=== PATIENT | female | born 1995 | race Caucasian/White ===

== ENCOUNTER 2017-02-05 16:50 | Outpatient (CLI) | payer OTHER ==
[~2017-02-05] VITALS: Ht 167.6 cm; Wt 69.2 kg
[2017-02-05 17:04] VITALS: Ht 167.6 cm; Wt 69.2 kg
--- NOTE | 2017-02-05 17:38 | RADRPT ---
PROCEDURE: OB ultrasound for biophysical profile CLINICAL INDICATION: Post dates TECHNIQUE: Multiple sonographic images of the pelvis were obtained. Transabdominal views of the g ravid uterus are available for review. The images were reviewed on a PACS workstation. COMPARISON: None FINDINGS: breathing movement = 2/2 tone = 2/2 motion = 2/2 NIKOLAI = 2/2 NIKOLAI = 14.0 cm Single live intrauterine with cardiac activity of 153 bpm. position is cephal ic. The placenta is posterior. IMPRESSION: 1. Single live intrauterine gestation. 2. Biophysical profile = 8/8. 3. NIKOLAI = 14.0 cm. RPTAT: HH .Deepthi Greene MD, MD Date Time Electronically viewed and signed by .Deepthi Greene MD, on 02/05/2017 17:38 .G/
--- NOTE | 2017-02-05 17:45 | RADRPT ---
PROCEDURE: US OB. CLINICAL INDICATION: Post dates TECHNIQUE: Multiple sonographic images of the pelvis were obtained. Transabdominal imaging only w as performed. The images were reviewed on a PACS workstation. COMPARISON: No prior studies are available for comparison. FINDINGS: There is a single live intrauterine gestation. Cardiac activity is present with 153 beats per minut e. position is cephalic. Measurements were made in order to determine age. The results are as follows: BPD = 9.69 cm HC = 34.27 cm AC = 35.33 cm FL = 7.87 cm. Estimated gestational age of approximately 39 weeks 5 days. The estimated date of delivery is 02/07/2017. The EFW = 3817 g, 64.6 %ile. The placenta is posterior. There is no evidence for an abruption or placenta previa. There are no adnexal masses. IMPRESSION: 1. Single live intrauterine gestation of approximately 39 weeks 5 days, by ultrasound criteria. 2. The estimated date of delivery is 02/07/2017. 3. The estimated weight is 3817 g, 64.6 %ile. RPTAT: HH .Deepthi Greene MD, Date Time Electronically viewed and signed by .Deepthi Greene MD, on 02/05/2017 17:45 .G/
[2017-02-05] MEDS ORDERED: PRENAT PO (18:26)
--- NOTE | 2017-02-05 18:46 | TRIAGE ---
OB Triage Datetime Report Generated by CPN: 02/05/2017 18:46 Datetime: 02/05/2017 17:57 Comments: NST DONE. Monitors taken off pt Datetime: 02/05/2017 17:50 Labor Evaluation Frequency: x1 contractions noted during NST Monitor Mode: External Quality: Mild Pattern: Normal: <= 5 Contractions in 10 Minutes Resting Tone [place]: Relaxed Heart Rate FHR Baseline Rate: 155 Monitor Mode: External US FHR Baseline Changes: No Baseline Change Variability: Moderate 6-25 bpm Accelerations: 15X15 Decelerations: None Category: Category I Pain Assessment Pain Presence: None/Denies Datetime: 02/05/2017 17:31 EGA: 39.3 Datetime: 02/05/2017 17:16 Time of Arrival: 02/05/2017 16:43 Arrived By: Ambulatory Arrived From: Office Chief Complaint: Post Dates Movement: Present Contractions: Denies/Absent Rupture of Membranes: Denies Vaginal Discharge: Denies Recent Sexual Intercouse: Denies Abdominal Trauma: Not Applicable Patient Complaints: None Initial Plan: NST, BPP, EFW, VE
--- NOTE | 2017-02-05 19:52 | PN ---
Triage Information Date/Time 02/05/2017 Reason for visit: Weeks of Gestation 39 weeks and 3 days /Para Diabetes: none Hypertention: none Additional information 22-year-old with IUP at 39 weeks and 3 days with care with Dr. Resendez was sent to triage due to concern for possible postdates. Patient denies any uterine contraction, leaking of fluid or vaginal bleeding or decreased movement. Her records reviewed. Her final BO by LMP consistent with 8 weeks ultrasound is February 04. Patient had ultrasound in triage. Estimated weight 3817 BPP: 01/21 Patient denies feeling any cramps or contraction. NST category 1 Objective Heart Rate: 120's Contractions: None Results/Medications Imaging Results PROCEDURE: US OB. CLINICAL INDICATION: Post dates TECHNIQUE: Multiple sonographic images of the pelvis were obtained. Transabdominal imaging only was performed. The images were reviewed on a PACS workstation. COMPARISON: No prior studies are available for comparison. FINDINGS: There is a single live intrauterine gestation. Cardiac activity is present with 153 beats per minute. position is cephalic. Measurements were made in order to determine age. The results are as follows: BPD = 9.69 cm HC = 34.27 cm AC = 35.33 cm FL = 7.87 cm. Estimated gestational age of approximately 39 weeks 5 days. The estimated date of delivery is 02/07/2017. The EFW = 3817 g, 64.6 %ile. The placenta is posterior. There is no evidence for an abruption or placenta previa. There are no adnexal masses. IMPRESSION: 1. Single live intrauterine gestation of approximately 39 weeks 5 days, by ultrasound criteria. 2. The estimated date of delivery is 02/07/2017. 3. The estimated weight is 3817 g, 64.6 %ile. RPTAT: HH Disposition: Discharge Assessment/Plan Follow up with her Primary OB within 24-48 hours Labor precaution and kick count MAGGY JOHNSON MD Feb 05, 2017 19:52
== END 2017-02-05 18:35 | disposition home or self-care (01) ==
LOC: OBT 16:50 → L-D 16:52 → OBT 18:35
PROVIDERS: ATTEND Obstetrics & Gynecology
DX: O48.0 Post-term pregnancy (principal)
CPT/HCPCS: 76815; 76818; Z7500; G0463

== ENCOUNTER 2017-02-09 14:50 | Outpatient (CLI) | payer OTHER ==
[~2017-02-09] VITALS: Ht 160 cm; Wt 69.3 kg
[~2017-02-09 14:50] MED LIST: PRENAT PO
[2017-02-09 15:20] VITALS: Ht 160 cm; Wt 69.3 kg
--- NOTE | 2017-02-09 15:56 | RADRPT ---
PROCEDURE: Obstetrical ultrasound for biophysical profile CLINICAL INDICATION: Biophysical profile. . TECHNIQUE: Obstetrical ultrasound of the uterus for biophysical profile. Transabdominal views are obtained. COMPARISON: 02/05/2017 FINDINGS: Single intrauterine gestation. Presentation: Cephalic. Placenta: Posterior - fundal No evidence of placental abruption. No evidence of placenta previa. breathing movement = 2/2 tone = 2/2 motion = 2/2 NIKOLAI = 2/2 NIKOLAI = 15.8 cm heart rate: 137 beats per minute IMPRESSION: Single intrauterine gestation. Biophysical profile 01/21 RPTAT: AADD .Fredo Quezada MD, MD Date Time Electronically viewed and signed by .Fredo Quezada MD, on 02/09/2017 15:55 .B/
--- NOTE | 2017-02-09 16:34 | QN ---
Documentation Comment iup 40 weeks gq1 po post dates -no complaints vss exan wnl a/p iup 40 weeks post dates dc home MADELYN KEARNS MD Feb 09, 2017 16:34
--- NOTE | 2017-02-09 17:45 | TRIAGE ---
OB Triage Datetime Report Generated by CPN: 02/09/2017 17:44 Datetime: 02/09/2017 15:40 Labor Evaluation Monitor Mode: External Resting Tone [place]: Relaxed Heart Rate FHR Baseline Rate: 130 Monitor Mode: External US FHR Baseline Changes: No Baseline Change Variability: Moderate 6-25 bpm Accelerations: 15X15 Decelerations: None Category: Category I Pain Assessment Pain Presence: None/Denies Datetime: 02/09/2017 15:22 Time of Arrival: 02/09/2017 14:46 EGA: 40.0 Arrived By: Ambulatory Arrived From: Home Chief Complaint: BPP/NIKOLAI Movement: Present Contractions: Denies/Absent Rupture of Membranes: Denies Vaginal Discharge: Denies Recent Sexual Intercouse: Denies Abdominal Trauma: Not Applicable Patient Complaints: None Provider Notified: Lonnie Initial Plan: NST, BPP/NIKOLAI Datetime: 02/09/2017 15:20 Assessment Type: Triage Maternal Assessment Level of Consciousness: Fully Conscious DTR's/Clonus: DTRs 2+; No Clonus Headache: Denies Blurred Vision: No Respiratory Effort: Unlabored; Regular Rhythm; Equal Expansion Breath Sounds, Left: Clear and Equal Breath Sounds, Right: Clear and Equal Nausea/Vomiting: Denies RUQ Epigastric Pain: Denies Lower Extremities Edema: None Degree: None Upper Extremities Edema: None Degree: None Facial Edema: None Fall Risk Assessment History of Falling: (0) No Secondary Diagnosis: (0) No Ambulatory Aid: (0) Bedrest/Nurse Assist IV Therapy: (0) No Gait: (0) Normal/Bedrest/Immobile Mental Status: (0) Oriented to Own Ability Fall Score: 0 Fall Risk Score Definition: No Risk: No action required Datetime: 02/05/2017 17:31 EGA: 39.3 Datetime: 02/05/2017 17:16 Chief Complaint: Post Dates (Pt's reported BO 02/04/17) Time Provider Notified: 02/05/2017 18:08 Provider Notified: Salceda Datetime: 02/05/2017 17:00 Assessment Type: Triage Maternal Assessment Level of Consciousness: Fully Conscious DTR's/Clonus: DTRs 2+; No Clonus Headache: Denies Blurred Vision: No Respiratory Effort: Unlabored; Regular Rhythm; Equal Expansion Breath Sounds, Left: Clear and Equal Breath Sounds, Right: Clear and Equal Nausea/Vomiting: Denies RUQ Epigastric Pain: Denies Lower Extremities Edema: None Degree: None Upper Extremities Edema: None Degree: None Facial Edema: None Fall Risk Assessment History of Falling: (0) No Secondary Diagnosis: (0) No Ambulatory Aid: (0) Bedrest/Nurse Assist IV Therapy: (0) No Gait: (0) Normal/Bedrest/Immobile Mental Status: (0) Oriented to Own Ability Fall Score: 0 Fall Risk Score Definition: No Risk: No action required Datetime: 02/05/2017 16:53 Stage of : OB Triage
== END 2017-02-09 16:35 | disposition home or self-care (01) ==
LOC: OBT 14:50 → L-D 14:50 → OBT 16:35
PROVIDERS: ATTEND Obstetrics & Gynecology
DX: O48.0 Post-term pregnancy (principal); Z3A.40 40 weeks gestation of pregnancy
CPT/HCPCS: 76818; Z7500; G0463

== ENCOUNTER 2017-02-12 10:50 | Inpatient (IN) | payer OTHER ==
[~2017-02-12] VITALS: Ht 167.6 cm; Wt 69.5 kg
[2017-02-12] MEDS: LACTATED RINGER'S 1,000 ML IV SCH ×2 (11:30→19:21)
[2017-02-12 11:59] VITALS: Ht 167.6 cm; Wt 69.5 kg
[2017-02-12 12:00] VITALS: BP 135/82; PULSE 83; RESP 19
[2017-02-12] MEDS ORDERED: BUTORPHANOL 2 MG INJ IV PRN ×2 (12:30→15:30)
--- NOTE | 2017-02-12 12:45 | RADRPT ---
PROCEDURE: OB ultrasound for biophysical profile CLINICAL INDICATION: Post dates TECHNIQUE: Multiple sonographic images of the pelvis were obtained. Transabdominal views of the g ravid uterus are available for review. The images were reviewed on a PACS workstation. COMPARISON: None FINDINGS: breathing movement = 2/2 tone = 2/2 motion = 2/2 NIKOLAI = 2/2 NIKOLAI = 7.5 cm Single live intrauterine with cardiac activity of 124 bpm. position is cephal ic. The placenta is posterior. IMPRESSION: 1. Single live intrauterine gestation. 2. Biophysical profile = 8/8. 3. NIKOLAI = 7.5 cm. RPTAT: HH .Deepthi Greene MD, MD Date Time Electronically viewed and signed by .Deepthi Greene MD, on 02/12/2017 12:45 .G/
--- NOTE | 2017-02-12 13:11 | RADRPT ---
PROCEDURE: US OB. CLINICAL INDICATION: Size and dates TECHNIQUE: Multiple sonographic images of the pelvis were obtained. Transabdominal imaging only w as performed. The images were reviewed on a PACS workstation. COMPARISON: No prior studies are available for comparison. FINDINGS: There is a single live intrauterine gestation. Cardiac activity is present with 128 beats per minut e. position is cephalic. Measurements were made in order to determine age. The results are as follows: BPD = 9.34 cm HC = 33.35 cm AC = 33.31 cm FL = 7.05 cm. Estimated gestational age of approximately 37 weeks 3 days. The estimated date of delivery is 03/02/2017. The EFW = 3129 g, 11.5 %ile. The placenta is posterior. There is no evidence for an abruption or placenta previa. There are no adnexal masses. IMPRESSION: 1. Single live intrauterine gestation of approximately 37 weeks 3 days, by ultrasound criteria. 2. The estimated date of delivery is 03/02/2017. 3. The estimated weight is 3129 g, 11.5 %ile. RPTAT: HH .Deepthi Greene MD, Date Time Electronically viewed and signed by .Deepthi Greene MD, on 02/12/2017 13:10 .G/
[2017-02-12] MEDS ORDERED: LACTATED RINGER'S 1,000 ML IV SCH (15:27)
[2017-02-12] MEDS ORDERED: METHYLERGONOVINE 0.2 MG INJ IM PRN (15:30)
[2017-02-12] MEDS ORDERED: CARBOPROST 250 MCG INJ IM PRN (15:30)
[2017-02-12] MEDS ORDERED: IBUPROFEN 600 MG TAB PO PRN (15:30)
[2017-02-12] MEDS ORDERED: MISOPROSTOL 200 MCG TAB PR PRN (15:30)
[2017-02-12] MEDS ORDERED: LIDOCAINE 1% (MPF) 30 ML INJ INJ PRN (15:30)
[2017-02-12] MEDS ORDERED: OXYTOCIN 30 UNITS/LR 500 ML IV PRN (15:30)
[2017-02-12] MEDS ORDERED: OXYTOCIN 30 UNITS/LR 500 ML IV SCH ×3 (15:30)
[2017-02-12 16:03] LABS: BASOPHILS % 0.4 % (0.0-2.0); EOSINOPHILS # 0.1 10^3/ul (0.0-0.5); EOSINOPHILS % 0.8 % (0.0-7.0); HEMATOCRIT 33.5 % (37.0-47.0); HEMOGLOBIN 11.3 g/dl (12.0-16.0); LYMPHOCYTES # 1.7 10^3/ul (0.8-2.9); MEAN CORPUSCULAR HEMOGLOBIN 26.8 pg (29.0-33.0); MEAN CORPUSCULAR HGB CONC 33.7 g/dl (32.0-37.0); MEAN CORPUSCULAR VOLUME 79.4 fl (72.0-104.0); MONOCYTE # 0.7 10^3/ul (0.3-0.9); MONOCYTES % 7.6 % (0.0-13.0); NEUTROPHILS % 72.8 % (30.0-74.0); PLATELET COUNT 226 10^3/UL (140-415); RED BLOOD COUNT 4.22 10^6/ul (4.20-5.40); RED CELL DISTRIBUTION WIDTH 13.4 % (11.5-14.5); WHITE BLOOD COUNT 9.3 10^3/ul (4.8-10.8)
[2017-02-12 16:06] LABS: INR 0.86; PROTIME 11.7 Sec (12.2-14.2); PT RATIO 0.9
--- NOTE | 2017-02-12 19:43 | HP ---
Date/Time of Note Date/Time of Note DATE: 02/12/17 TIME: 19:37 OB - History Hx of Present Free Text/Dictation 02/12/2017 Chief Complaint: post date, was sent from Dr. de jesus office for labor induction. Estimated Due Date: Feb 09, 2017 : 2 Para: 0 Spontaneous : 1 Therapeutic : 0 Care: Good Care Medical Complications: None Other Concerns: Post date Favourable cervix Borderline EFW post date, was sent from Dr. de jesus office for labor induction. Patient desired and requested her care being transferred to ER panel attending. Past Family/Social History * Past Medical, Family and Obstetric Histories reviewed from chart History of left nephrectomy about 17 years ago, unclear etiology. Blood Type: O+ Rubella: immune RPR/VDRL: Negative GBS Status: Negative HBsAG: Negative OB Admission Exam Vital Signs Vital Signs Vital Signs Date Time Temp Pulse Resp B/P Pulse Ox O2 Delivery O2 Flow Rate FiO2 02/12/17 12:00 98.2 83 19 135/82 99 Room Air Physical Exam HEENT: WNL Lungs: Clear Abdomen: WNL Extremities: Normal Reflexes: Normal Cervical Dilatation: 2cm Effacement: 75% Station: -2 Membranes: Intact Heart Rate: 130's Accelerations: Accelerations Present Varibility: Moderate Contractions on Admission: < 5 Minutes Apart Intensity: Mild Last 72 hours Lab Results CBC & BMP 02/12/17 11:10 OB Assessment/Plan Other Assessment: IUP at GBS negative Post date, 40 week and 3 days Favourable cervix Desires induction Risks and benefits of induction including risk for section discussed with the patient. Patient verbalized understanding and desires to proceed. Start pitocin. Anticipate Epidural when requests. MAGGY JOHNSON MD Feb 12, 2017 19:43
[2017-02-12 21:22] LABS: BASOPHILS % 0.3 % (0.0-2.0); EOSINOPHILS # 0.1 10^3/ul (0.0-0.5); EOSINOPHILS % 0.5 % (0.0-7.0); HEMATOCRIT 34.8 % (37.0-47.0); HEMOGLOBIN 11.6 g/dl (12.0-16.0); LYMPHOCYTES # 1.8 10^3/ul (0.8-2.9); LYMPHOCYTES % 19.6 % (18.0-55.0); MEAN CORPUSCULAR HEMOGLOBIN 26.4 pg (29.0-33.0); MEAN CORPUSCULAR HGB CONC 33.3 g/dl (32.0-37.0); MEAN CORPUSCULAR VOLUME 79.3 fl (72.0-104.0); MEAN PLATELET VOLUME 11.8 fl (7.4-10.4); MONOCYTE # 0.7 10^3/ul (0.3-0.9); MONOCYTES % 7.6 % (0.0-13.0); NEUTROPHILS % 71.7 % (30.0-74.0); PLATELET COUNT 217 10^3/UL (140-415); RED BLOOD COUNT 4.39 10^6/ul (4.20-5.40); RED CELL DISTRIBUTION WIDTH 13.5 % (11.5-14.5); WHITE BLOOD COUNT 9.3 10^3/ul (4.8-10.8)
[2017-02-12] MEDS ORDERED: LACTATED RINGER'S 1,000 ML IV ONE (21:26)
[2017-02-12] MEDS ORDERED: FENTAnyl 2MCG/ML-ROPIV 0.2% 0 ML ONE (21:29)
[2017-02-12] MEDS ORDERED: NALOXONE (0.4 MG/ML) INJ IV PRN (21:30)
[2017-02-12] MEDS ORDERED: morphine 2 MG INJ IV PRN (21:30)
[2017-02-12] MEDS ORDERED: TRIMETHOBENZAMIDE 100 MG/ML VIAL IM PRN (21:30)
[2017-02-12] MEDS ORDERED: KETOROLAC 30 MG INJ IV PRN (21:30)
[2017-02-12] MEDS ORDERED: NALBUPHINE HCL (10 MG/1 ML) INJ IV PRN (21:30)
[2017-02-12] MEDS ORDERED: morphine 4 MG/ML VIAL IV PRN (21:30)
[2017-02-12] MEDS ORDERED: ONDANSETRON 4 MG INJ IV ONE (21:30)
[2017-02-12] MEDS ORDERED: ONDANSETRON 4 MG INJ IV PRN (21:30)
[2017-02-12] MEDS ORDERED: FENTAnyl 2MCG/ML-ROPIV 0.2% 100 ML BAG EPI SCH (21:30)
[2017-02-12] MEDS ORDERED: CITRIC ACID/NA CITRATE 30 ML CUP PO ONE (21:30)
[2017-02-12] MEDS ORDERED: DIPHENHYDRAMINE 50 MG INJ IV PRN (21:30)
[2017-02-12 21:37] LABS: INR 0.87; PROTIME 11.8 Sec (12.2-14.2); PT RATIO 0.9
[2017-02-12 21:38] LABS: PARTIAL THROMBOPLASTIN TIME 24.1 Sec (25.0-35.0)
[2017-02-12 21:41] LABS: ALBUMIN 3.2 g/dl (3.3-4.9); ALBUMIN/GLOBULIN RATIO 0.82; BILIRUBIN,INDIRECT 0.1 mg/dl (0-1.1); BILIRUBIN,TOTAL 0.1 mg/dl (0.2-1.3); CREATININE 0.71 mg/dl (0.44-1.00); POTASSIUM 4.1 mmol/L (3.5-5.1); TOTAL PROTEIN 7.1 g/dl (6.1-8.1)
[2017-02-12 21:45] LABS: ADD UMIC YES; UR ASCORBIC ACID NEGATIVE (NEGATIVE); UR BILIRUBIN (Dip) NEGATIVE (NEGATIVE); UR BLOOD (Dip) 3+ mg/dL (NEGATIVE); UR CLARITY CLEAR (CLEAR); UR COLOR STRAW (YELLOW); UR GLUCOSE (Dip) NEGATIVE (NEGATIVE); UR KETONES (Dip) NEGATIVE (NEGATIVE); UR LEUKOCYTE ESTERASE (Dip) NEGATIVE Leu/ul (NEGATIVE); UR NITRITE (Dip) NEGATIVE (NEGATIVE); UR RBC 1 /HPF (0-5); UR SPECIFIC GRAVITY (Dip) 1.005 (1.003-1.030); UR TOTAL PROTEIN (Dip) NEGATIVE (NEGATIVE); UR UROBILINOGEN (Dip) NEGATIVE (NEGATIVE)
[2017-02-12] MEDS ORDERED: LACTATED RINGER'S 1,000 ML IV PRN (22:00)
[2017-02-13] MEDS: LACTATED RINGER'S 1,000 ML IV SCH ×2 (03:22→08:34)
[2017-02-13] MEDS ORDERED: FENTAnyl 2MCG/ML-ROPIV 0.2% 100 ML ONE (08:08)
[2017-02-13] MEDS ORDERED: NALBUPHINE HCL (10 MG/1 ML) INJ IV PRN (09:30)
[2017-02-13] MEDS ORDERED: NALOXONE (0.4 MG/ML) INJ IV PRN (09:30)
[2017-02-13] MEDS ORDERED: ONDANSETRON 4 MG INJ IV PRN (09:30)
[2017-02-13] MEDS ORDERED: DIPHENHYDRAMINE 50 MG INJ IV PRN (09:30)
[2017-02-13] MEDS ORDERED: FENTAnyl 2MCG/ML-ROPIV 0.2% 100 ML BAG EPI SCH (09:30)
[2017-02-13] MEDS ORDERED: TRIMETHOBENZAMIDE 100 MG/ML VIAL IM PRN (09:30)
--- NOTE | 2017-02-13 12:37 | LDN ---
Date/Time of Note Date/Time of Note DATE: 02/13/17 TIME: 12:29 Delivery Summary February 13, 2017 This patient is a 22 years old 2 para 0 1 with estimated date of confinement of February 10, 2017 who was admitted yesterday January. She was induced due to post term she made a progress to complete dilatation today under epidural anesthesia. She had an spontaneous vaginal delivery. Small sulcus tear was repaired with 3-0 chromic catgut the. Beatty was female with score of 9 and 1 minute 9 at 5 minutes The weight of the baby was 7 pounds and 6 ounces . Estimated blood loss was about 200 cc Placenta Delivered: Spontaneously Meconium: none Episiotomy: No Anesthesia type: Epidural Sponge & Needle done & correct: Yes All needle counts correct: Yes Any foreign bodies felt in the: No Problems: Delivery Information Sex Sex: female Apgars 1 Minute: 9 5 Minute: 9 Suctioning Nose & mouth suctioned at markos: Yes Delee suction performed: No Umbilical Cord Umbilical cord with: 3 Vessels Cord presentations: no nuchal cord Cord Blood was obtained: Yes Mother & Baby Disposition Disposition Laboratory Tests Test 02/12/17 16:00 02/12/17 21:04 Hepatitis B Surface Antigen NEGATIVE White Blood Count 9.310^3/ul Red Blood Count 4.3910^6/ul Hemoglobin 11.6g/dl Hematocrit 34.8% Mean Corpuscular Volume 79.3fl Mean Corpuscular Hemoglobin 26.4pg Mean Corpuscular Hemoglobin Concent 33.3g/dl Red Cell Distribution Width 13.5% Platelet Count 33003^3/UL Mean Platelet Volume 11.8fl Neutrophils % 71.7% Lymphocytes % 19.6% Monocytes % 7.6% Eosinophils % 0.5% Basophils % 0.3% Nucleated Red Blood Cells % 0.0/100WBC Neutrophils # (Manual) 6.710^3/ul Lymphocytes # 1.810^3/ul Monocytes # 0.710^3/ul Eosinophils # 0.110^3/ul Basophils # 0.010^3/ul Nucleated Red Blood Cells # 0.010^3/ul Prothrombin Time 11.8Sec Prothrombin Time Ratio 0.9 INR International Normalized Ratio 0.87 Activated Partial Thromboplast Time 24.1Sec Urine Color STRAW Urine Clarity CLEAR Urine pH 7.0 Urine Specific [place] 1.005 Urine Ketones NEGATIVEmg/dL Urine Nitrite NEGATIVEmg/dL Urine Bilirubin NEGATIVEmg/dL Urine Urobilinogen NEGATIVEmg/dL Urine Leukocyte Esterase NEGATIVELeu/ul Urine Microscopic RBC 1/HPF Urine Microscopic WBC 1/HPF Urine Hemoglobin 3+mg/dL Urine Glucose NEGATIVEmg/dL Urine Total Protein NEGATIVEmg/dl Sodium Level 138mmol/L Potassium Level 4.1mmol/L Chloride Level 104mmol/L Carbon Dioxide Level 23mmol/L Anion Gap 15 Blood Urea Nitrogen 11mg/dl Creatinine 0.71mg/dl Glucose Level 82mg/dl Uric Acid 5.5mg/dl Calcium Level 9.0mg/dl Total Bilirubin 0.1mg/dl Direct Bilirubin 0.00mg/dl Indirect Bilirubin 0.1mg/dl Aspartate Amino Transf (AST/SGOT) 23IU/L Alanine Aminotransferase (ALT/SGPT) 19IU/L Alkaline Phosphatase 284IU/L Total Protein 7.1g/dl Albumin 3.2g/dl Globulin 3.90g/dl Albumin/Globulin Ratio 0.82 Current Medications Medications (Trade) Dose Ordered Sig/Michelle Route PRN Reason Start Time Stop Time Status Last Admin Dose Admin Lactated Ringer's (Lr) 1,000 ml @ 125 mls/hr Q8H IV 02/12/17 12:30 02/13/17 08:34 Butorphanol Tartrate 2 mg 2 mg Q2H PRN IV PAIN 02/12/17 12:30 Lactated Ringer's 1,000 ml @ 125 mls/hr Q8H IV 02/12/17 15:27 02/12/17 15:33 DC Oxytocin/Lactated Ringer's 500 ml @ 0 mls/hr TITRATE IV 02/12/17 15:30 02/12/17 16:00 Butorphanol Tartrate (Stadol) 2 mg Q2H PRN IV PAIN 02/12/17 15:30 02/12/17 15:33 DC Lidocaine 30 ml 30 ml ONCE PRN INJ EPISIOTOMY/TEARING 02/12/17 15:30 Oxytocin/Lactated Ringer's 500 ml @ 125 mls/hr ONCE -MAY REPEAT X1 IV 02/12/17 15:30 Oxytocin/Lactated Ringer's 500 ml @ 125 mls/hr ONCE IV 02/12/17 15:30 Ibuprofen 600 mg 600 mg ONCE PRN PO Mild Pain (Pain Score 1-3) 02/12/17 15:30 Lactated Ringer's 1,000 ml @ 2,000 mls/hr Q30M PRN IV PRE-EPIDURAL BOLUS 02/12/17 22:00 Oxytocin/Lactated Ringer's 500 ml @ 0 mls/hr ONCE PRN IV For Hemorrhage Management 02/12/17 15:30 Methylergonovine Maleate (Methergine) 0.2 mg ONCE PRN IM VAGINAL BLEEDING 02/12/17 15:30 Carboprost Tromethamine (Hemabate) 250 mcg ONCE PRN IM VAGINAL BLEEDING 02/12/17 15:30 Misoprostol 1000 mcg 1,000 mcg ONCE PRN ID VAGINAL BLEEDING 02/12/17 15:30 Lactated Ringer's (Lr) 1,000 ml @ 1,000 mls/hr Q1H ONCE IV 02/12/17 21:26 02/12/17 21:53 DC Ondansetron HCl (Zofran Inj) 4 mg pre-procedure ONCE IV 02/12/17 21:30 02/12/17 21:53 DC Citric Acid/ Sodium Citrate (Bicitra) 30 ml PRE-OP ONCE PO 02/12/17 21:30 02/12/17 21:53 DC Naloxone HCl (Narcan) 0.1 mg Q2M PRN IV FOR RESP RATE 8 OR LESS 02/12/17 21:30 02/12/17 21:53 DC Ketorolac Tromethamine (Toradol) 30 mg Q6H PRN IV PAIN 02/12/17 21:30 02/12/17 21:53 DC Morphine Sulfate (morphine) 2 mg Q3H PRN IV PAIN LEVEL 1-5 02/12/17 21:30 02/12/17 21:53 DC Morphine Sulfate (morphine) 4 mg Q3H PRN IV PAIN LEVEL 6-10 02/12/17 21:30 02/12/17 21:53 DC Diphenhydramine HCl (Benadryl) 25 mg Q6H PRN IV ITCHING 02/12/17 21:30 02/12/17 21:53 DC Nalbuphine HCl (Nubain) 5 mg ONCE PRN IV ITCHING 02/12/17 21:30 02/12/17 21:53 DC Ondansetron HCl (Zofran Inj) 4 mg Q6H PRN IV NAUSEA AND/OR VOMITING 02/12/17 21:30 02/12/17 21:53 DC Trimethobenzamide HCl (Tigan) 200 mg Q6H PRN IM NAUSEA AND/OR VOMITING 02/12/17 21:30 02/12/17 21:53 DC Fentanyl/ Ropivacaine 100 ml 100 ml EPIDURAL INFUSION EPI 02/12/17 21:30 02/12/17 21:53 DC Fentanyl/ Ropivacaine 0 ml @ ud STK-MED ONCE .ROUTE 02/12/17 21:29 02/12/17 21:30 DC Fentanyl/ Ropivacaine 100 ml @ STK-MED ONCE .ROUTE 02/13/17 08:08 02/13/17 08:09 DC Naloxone HCl (Narcan) 0.1 mg Q2M PRN IV FOR RESP RATE 8 OR LESS 02/13/17 09:30 02/14/17 09:29 Diphenhydramine HCl (Benadryl) 25 mg Q6H PRN IV ITCHING 02/13/17 09:30 02/14/17 09:29 Nalbuphine HCl (Nubain) 5 mg ONCE PRN IV ITCHING 02/13/17 09:30 02/14/17 09:29 Ondansetron HCl (Zofran Inj) 4 mg Q6H PRN IV NAUSEA AND/OR VOMITING 02/13/17 09:30 02/14/17 09:29 Trimethobenzamide HCl (Tigan) 200 mg Q6H PRN IM NAUSEA AND/OR VOMITING 02/13/17 09:30 02/14/17 09:29 Fentanyl/ Ropivacaine 100 ml EPIDURAL INFUSION EPI 02/13/17 09:30 Mom & Baby to Maternity; Good: Yes Mom transferred to: Med/Surg Baby to NICU: No KAREL AMARO MD Feb 13, 2017 12:37
[2017-02-13] MEDS ORDERED: OXYTOCIN 30 UNITS/LR 500 ML IV SCH (13:58)
[2017-02-13] MEDS ORDERED: LANOLIN 7 GM TUBE TOP PRN (14:00)
[2017-02-13] MEDS ORDERED: SENNA/DOCUSATE NA (8.6MG/50MG) TAB PO PRN (14:00)
[2017-02-13] MEDS ORDERED: CARBOPROST 250 MCG INJ IM PRN (14:00)
[2017-02-13] MEDS ORDERED: MISOPROSTOL 200 MCG TAB PR PRN (14:00)
[2017-02-13] MEDS ORDERED: ACETAMINOPHEN 500 MG TAB PO PRN (14:00)
[2017-02-13] MEDS ORDERED: DIBUCAINE 1% 30 GM OINT PR PRN (14:00)
[2017-02-13] MEDS ORDERED: OXYTOCIN 30 UNITS/LR 500 ML IV PRN (14:00)
[2017-02-13] MEDS ORDERED: WITCH HAZEL/GLYCERIN PAD PR PRN (14:00)
[2017-02-13] MEDS ORDERED: BENZOCAINE 20% 56 ML SPRAY TOP PRN (14:00)
[2017-02-13] MEDS ORDERED: METHYLERGONOVINE 0.2 MG INJ IM PRN (14:00)
[2017-02-13] MEDS ORDERED: OXYCODONE/ASPIRIN (4.88/325) TAB PO PRN ×2 (14:00)
[2017-02-13 14:15] VITALS: BP 120/66; PULSE 56; RESP 18
[2017-02-13 16:10] VITALS: BP 116/58; PULSE 60; RESP 18
[2017-02-13] MEDS: IBUPROFEN 600 MG TAB PO PRN (18:04)
[2017-02-13 20:00] VITALS: BP 125/70; PULSE 112; RESP 20
[2017-02-14 03:55] VITALS: BP 105/47; PULSE 58; RESP 19
[2017-02-14] MEDS: IBUPROFEN 600 MG TAB PO PRN (08:42)
[2017-02-14 09:11] LABS: BASOPHILS % 0.4 % (0.0-2.0); EOSINOPHILS # 0.1 10^3/ul (0.0-0.5); EOSINOPHILS % 1.1 % (0.0-7.0); HEMATOCRIT 30.3 % (37.0-47.0); LYMPHOCYTES # 2.1 10^3/ul (0.8-2.9); LYMPHOCYTES % 21.3 % (18.0-55.0); MEAN CORPUSCULAR HEMOGLOBIN 26.5 pg (29.0-33.0); MEAN CORPUSCULAR VOLUME 80.2 fl (72.0-104.0); MONOCYTE # 0.7 10^3/ul (0.3-0.9); MONOCYTES % 6.7 % (0.0-13.0); NEUTROPHILS % 70.3 % (30.0-74.0); PLATELET COUNT 169 10^3/UL (140-415); RED BLOOD COUNT 3.78 10^6/ul (4.20-5.40); RED CELL DISTRIBUTION WIDTH 13.4 % (11.5-14.5); WHITE BLOOD COUNT 9.8 10^3/ul (4.8-10.8)
--- NOTE | 2017-02-14 10:53 | PN ---
Date/Time of Note Date/Time of Note DATE: 02/14/17 TIME: 10:49 OB Subjective Subjective Subjective February 14, 2017 Post day 1 Doing Well Afebrile Ambulatory Chest Clear Breasts are soft , Nipples are intact Abdomen is soft Fundus is firm Moderate amount of lochi Laboratory Tests Test 02/14/17 07:54 White Blood Count 9.810^3/ul Red Blood Count 3.7810^6/ul Hemoglobin 10.0g/dl Hematocrit 30.3% Mean Corpuscular Volume 80.2fl Mean Corpuscular Hemoglobin 26.5pg Mean Corpuscular Hemoglobin Concent 33.0g/dl Red Cell Distribution Width 13.4% Platelet Count 55671^3/UL Mean Platelet Volume 12.0fl Neutrophils % 70.3% Lymphocytes % 21.3% Monocytes % 6.7% Eosinophils % 1.1% Basophils % 0.4% Nucleated Red Blood Cells % 0.0/100WBC Neutrophils # (Manual) 6.910^3/ul Lymphocytes # 2.110^3/ul Monocytes # 0.710^3/ul Eosinophils # 0.110^3/ul Basophils # 0.010^3/ul Nucleated Red Blood Cells # 0.010^3/ul Current Medications Medications (Trade) Dose Ordered Sig/Michelle Route PRN Reason Start Time Stop Time Status Last Admin Dose Admin Lactated Ringer's (Lr) 1,000 ml @ 125 mls/hr Q8H IV 02/12/17 12:30 02/13/17 14:01 DC 02/13/17 08:34 Butorphanol Tartrate 2 mg 2 mg Q2H PRN IV PAIN 02/12/17 12:30 02/13/17 14:01 DC Lactated Ringer's 1,000 ml @ 125 mls/hr Q8H IV 02/12/17 15:27 02/12/17 15:33 DC Oxytocin/Lactated Ringer's 500 ml @ 0 mls/hr TITRATE IV 02/12/17 15:30 02/13/17 14:01 DC 02/12/17 16:00 Butorphanol Tartrate (Stadol) 2 mg Q2H PRN IV PAIN 02/12/17 15:30 02/12/17 15:33 DC Lidocaine 30 ml 30 ml ONCE PRN INJ EPISIOTOMY/TEARING 02/12/17 15:30 02/13/17 14:01 DC Oxytocin/Lactated Ringer's 500 ml @ 125 mls/hr ONCE -MAY REPEAT X1 IV 02/12/17 15:30 02/13/17 14:01 DC 02/13/17 12:44 Oxytocin/Lactated Ringer's 500 ml @ 125 mls/hr ONCE IV 02/12/17 15:30 02/13/17 14:01 DC 02/13/17 12:47 Ibuprofen 600 mg 600 mg ONCE PRN PO Mild Pain (Pain Score 1-3) 02/12/17 15:30 02/13/17 14:01 DC Lactated Ringer's 1,000 ml @ 2,000 mls/hr Q30M PRN IV PRE-EPIDURAL BOLUS 02/12/17 22:00 02/13/17 14:01 DC Oxytocin/Lactated Ringer's 500 ml @ 0 mls/hr ONCE PRN IV For Hemorrhage Management 02/12/17 15:30 02/13/17 14:01 DC Methylergonovine Maleate (Methergine) 0.2 mg ONCE PRN IM VAGINAL BLEEDING 02/12/17 15:30 02/13/17 14:01 DC Carboprost Tromethamine (Hemabate) 250 mcg ONCE PRN IM VAGINAL BLEEDING 02/12/17 15:30 02/13/17 14:01 DC Misoprostol 1000 mcg 1,000 mcg ONCE PRN CO VAGINAL BLEEDING 02/12/17 15:30 02/13/17 14:01 DC Lactated Ringer's (Lr) 1,000 ml @ 1,000 mls/hr Q1H ONCE IV 02/12/17 21:26 02/12/17 21:53 DC Ondansetron HCl (Zofran Inj) 4 mg pre-procedure ONCE IV 02/12/17 21:30 02/12/17 21:53 DC Citric Acid/ Sodium Citrate (Bicitra) 30 ml PRE-OP ONCE PO 02/12/17 21:30 02/12/17 21:53 DC Naloxone HCl (Narcan) 0.1 mg Q2M PRN IV FOR RESP RATE 8 OR LESS 02/12/17 21:30 02/12/17 21:53 DC Ketorolac Tromethamine (Toradol) 30 mg Q6H PRN IV PAIN 02/12/17 21:30 02/12/17 21:53 DC Morphine Sulfate (morphine) 2 mg Q3H PRN IV PAIN LEVEL 1-5 02/12/17 21:30 02/12/17 21:53 DC Morphine Sulfate (morphine) 4 mg Q3H PRN IV PAIN LEVEL 6-10 02/12/17 21:30 02/12/17 21:53 DC Diphenhydramine HCl (Benadryl) 25 mg Q6H PRN IV ITCHING 02/12/17 21:30 02/12/17 21:53 DC Nalbuphine HCl (Nubain) 5 mg ONCE PRN IV ITCHING 02/12/17 21:30 02/12/17 21:53 DC Ondansetron HCl (Zofran Inj) 4 mg Q6H PRN IV NAUSEA AND/OR VOMITING 02/12/17 21:30 02/12/17 21:53 DC Trimethobenzamide HCl (Tigan) 200 mg Q6H PRN IM NAUSEA AND/OR VOMITING 02/12/17 21:30 02/12/17 21:53 DC Fentanyl/ Ropivacaine 100 ml 100 ml EPIDURAL INFUSION EPI 02/12/17 21:30 02/12/17 21:53 DC Fentanyl/ Ropivacaine 0 ml @ ud STK-MED ONCE .ROUTE 02/12/17 21:29 02/12/17 21:30 DC Fentanyl/ Ropivacaine 100 ml @ STK-MED ONCE .ROUTE 02/13/17 08:08 02/13/17 08:09 DC Naloxone HCl (Narcan) 0.1 mg Q2M PRN IV FOR RESP RATE 8 OR LESS 02/13/17 09:30 02/13/17 14:01 DC Diphenhydramine HCl (Benadryl) 25 mg Q6H PRN IV ITCHING 02/13/17 09:30 02/13/17 14:01 DC Nalbuphine HCl (Nubain) 5 mg ONCE PRN IV ITCHING 02/13/17 09:30 02/13/17 14:01 DC Ondansetron HCl (Zofran Inj) 4 mg Q6H PRN IV NAUSEA AND/OR VOMITING 02/13/17 09:30 02/13/17 14:01 DC Trimethobenzamide HCl (Tigan) 200 mg Q6H PRN IM NAUSEA AND/OR VOMITING 02/13/17 09:30 02/13/17 14:01 DC Fentanyl/ Ropivacaine 100 ml EPIDURAL INFUSION EPI 02/13/17 09:30 02/13/17 14:01 DC Oxycodone/Aspirin (Percodan) 1 tab Q3H PRN PO PAIN LEVEL 1-5 02/13/17 14:00 Oxycodone/Aspirin (Percodan) 2 tab Q3H PRN PO PAIN LEVEL 6-10 02/13/17 14:00 Senna/Docusate Sodium (Senokot-S) 1 tab BID PRN PO CONSTIPATION 02/13/17 14:00 02/14/17 08:41 Witch Franca/ Glycerin (Tucks Pads) 1 pad BEDSIDE MEDICATION PRN CO HEMORRHOID/EPISIOTMY PAIN 02/13/17 14:00 02/13/17 15:39 Benzocaine (Dermoplast [place]) 1 spray BEDSIDE MEDICATION PRN TOP HEMORRHOID/EPISIOTMY PAIN 02/13/17 14:00 02/13/17 15:39 Dibucaine (Nupercainal) 1 applic BEDSIDE MEDICATION PRN CO HEMORRHOID/EPISIOTMY PAIN 02/13/17 14:00 Lanolin (Lht-M-Ryplzy) 1 applic BEDSIDE MEDICATION PRN TOP BEDSIDE FOR AGUILAR TO NIPPLES 02/13/17 14:00 Diphtheria/ Tetanus/Acell Pertussis 0.5 ml 0.5 ml ONCE ONCE IM* 02/15/17 09:00 02/15/17 09:01 Oxytocin/Lactated Ringer's 500 ml @ 0 mls/hr ONCE PRN IV For Hemorrhage Management 02/13/17 14:00 Methylergonovine Maleate (Methergine) 0.2 mg ONCE PRN IM VAGINAL BLEEDING 02/13/17 14:00 Carboprost Tromethamine (Hemabate) 250 mcg ONCE PRN IM VAGINAL BLEEDING 02/13/17 14:00 Misoprostol 1000 mcg 1,000 mcg ONCE PRN CO VAGINAL BLEEDING 02/13/17 14:00 Oxytocin/Lactated Ringer's 500 ml @ 125 mls/hr Q4H IV 02/13/17 13:58 02/14/17 05:18 DC 02/13/17 15:12 Ibuprofen (Motrin) 600 mg Q6H PRN PO PAIN 02/13/17 14:00 02/14/17 08:42 Acetaminophen (Tylenol Tab) 500 mg Q6H PRN PO PAIN AND OR ELEVATED TEMP 02/13/17 14:00 No calf tenderness No ankle edema New born is doing well, Breast feeding KAREL AMARO MD Feb 14, 2017 10:53
[2017-02-14 11:59] VITALS: BP 140/72; PULSE 80; RESP 20
[2017-02-14 16:00] VITALS: BP 122/60; PULSE 59; RESP 18
[2017-02-14 19:50] VITALS: BP 130/76; PULSE 67; RESP 18
[2017-02-15 03:40] VITALS: BP 105/61; PULSE 72; RESP 18
[2017-02-15 07:30] VITALS: BP 105/57; PULSE 69; RESP 18
[2017-02-15] MEDS ORDERED: DIPHTH/TET/ACEL PERTUSS (ADULT) 0.5 ML VIAL IM* ONE (09:00)
--- NOTE | 2017-02-15 13:09 | DS ---
Date/Time of Note Date/Time of Note DATE: 02/15/17 TIME: 13:07 Obstetrical Discharge Record Final Diagnosis Final Diagnosis: Term delivered Vaginal Delivery Obstetrical Delivery: Spontaneous Complications Augmentation: Yes Condition on Discharge Physical Assessment Voiding: Yes Bowel Movement: Yes Breast: Soft, non-tender Fundus: Firm Abdomen and Incision: Current Medications Medications (Trade) Dose Ordered Sig/Michelle Route PRN Reason Start Time Stop Time Status Last Admin Dose Admin Lactated Ringer's (Lr) 1,000 ml @ 125 mls/hr Q8H IV 02/12/17 12:30 02/13/17 14:01 DC 02/13/17 08:34 Butorphanol Tartrate 2 mg 2 mg Q2H PRN IV PAIN 02/12/17 12:30 02/13/17 14:01 DC Lactated Ringer's 1,000 ml @ 125 mls/hr Q8H IV 02/12/17 15:27 02/12/17 15:33 DC Oxytocin/Lactated Ringer's 500 ml @ 0 mls/hr TITRATE IV 02/12/17 15:30 02/13/17 14:01 DC 02/12/17 16:00 Butorphanol Tartrate (Stadol) 2 mg Q2H PRN IV PAIN 02/12/17 15:30 02/12/17 15:33 DC Lidocaine 30 ml 30 ml ONCE PRN INJ EPISIOTOMY/TEARING 02/12/17 15:30 02/13/17 14:01 DC Oxytocin/Lactated Ringer's 500 ml @ 125 mls/hr ONCE -MAY REPEAT X1 IV 02/12/17 15:30 02/13/17 14:01 DC 02/13/17 12:44 Oxytocin/Lactated Ringer's 500 ml @ 125 mls/hr ONCE IV 02/12/17 15:30 02/13/17 14:01 DC 02/13/17 12:47 Ibuprofen 600 mg 600 mg ONCE PRN PO Mild Pain (Pain Score 1-3) 02/12/17 15:30 02/13/17 14:01 DC Lactated Ringer's 1,000 ml @ 2,000 mls/hr Q30M PRN IV PRE-EPIDURAL BOLUS 02/12/17 22:00 02/13/17 14:01 DC Oxytocin/Lactated Ringer's 500 ml @ 0 mls/hr ONCE PRN IV For Hemorrhage Management 02/12/17 15:30 02/13/17 14:01 DC Methylergonovine Maleate (Methergine) 0.2 mg ONCE PRN IM VAGINAL BLEEDING 02/12/17 15:30 02/13/17 14:01 DC Carboprost Tromethamine (Hemabate) 250 mcg ONCE PRN IM VAGINAL BLEEDING 02/12/17 15:30 02/13/17 14:01 DC Misoprostol 1000 mcg 1,000 mcg ONCE PRN WI VAGINAL BLEEDING 02/12/17 15:30 02/13/17 14:01 DC Lactated Ringer's (Lr) 1,000 ml @ 1,000 mls/hr Q1H ONCE IV 02/12/17 21:26 02/12/17 21:53 DC Ondansetron HCl (Zofran Inj) 4 mg pre-procedure ONCE IV 02/12/17 21:30 02/12/17 21:53 DC Citric Acid/ Sodium Citrate (Bicitra) 30 ml PRE-OP ONCE PO 02/12/17 21:30 02/12/17 21:53 DC Naloxone HCl (Narcan) 0.1 mg Q2M PRN IV FOR RESP RATE 8 OR LESS 02/12/17 21:30 02/12/17 21:53 DC Ketorolac Tromethamine (Toradol) 30 mg Q6H PRN IV PAIN 02/12/17 21:30 02/12/17 21:53 DC Morphine Sulfate (morphine) 2 mg Q3H PRN IV PAIN LEVEL 1-5 02/12/17 21:30 02/12/17 21:53 DC Morphine Sulfate (morphine) 4 mg Q3H PRN IV PAIN LEVEL 6-10 02/12/17 21:30 02/12/17 21:53 DC Diphenhydramine HCl (Benadryl) 25 mg Q6H PRN IV ITCHING 02/12/17 21:30 02/12/17 21:53 DC Nalbuphine HCl (Nubain) 5 mg ONCE PRN IV ITCHING 02/12/17 21:30 02/12/17 21:53 DC Ondansetron HCl (Zofran Inj) 4 mg Q6H PRN IV NAUSEA AND/OR VOMITING 02/12/17 21:30 02/12/17 21:53 DC Trimethobenzamide HCl (Tigan) 200 mg Q6H PRN IM NAUSEA AND/OR VOMITING 02/12/17 21:30 02/12/17 21:53 DC Fentanyl/ Ropivacaine 100 ml 100 ml EPIDURAL INFUSION EPI 02/12/17 21:30 02/12/17 21:53 DC Fentanyl/ Ropivacaine 0 ml @ ud STK-MED ONCE .ROUTE 02/12/17 21:29 02/12/17 21:30 DC Fentanyl/ Ropivacaine 100 ml @ ud STK-MED ONCE .ROUTE 02/13/17 08:08 02/13/17 08:09 DC Naloxone HCl (Narcan) 0.1 mg Q2M PRN IV FOR RESP RATE 8 OR LESS 02/13/17 09:30 02/13/17 14:01 DC Diphenhydramine HCl (Benadryl) 25 mg Q6H PRN IV ITCHING 02/13/17 09:30 02/13/17 14:01 DC Nalbuphine HCl (Nubain) 5 mg ONCE PRN IV ITCHING 02/13/17 09:30 02/13/17 14:01 DC Ondansetron HCl (Zofran Inj) 4 mg Q6H PRN IV NAUSEA AND/OR VOMITING 02/13/17 09:30 02/13/17 14:01 DC Trimethobenzamide HCl (Tigan) 200 mg Q6H PRN IM NAUSEA AND/OR VOMITING 02/13/17 09:30 02/13/17 14:01 DC Fentanyl/ Ropivacaine 100 ml EPIDURAL INFUSION EPI 02/13/17 09:30 02/13/17 14:01 DC Oxycodone/Aspirin (Percodan) 1 tab Q3H PRN PO PAIN LEVEL 1-5 02/13/17 14:00 Oxycodone/Aspirin (Percodan) 2 tab Q3H PRN PO PAIN LEVEL 6-10 02/13/17 14:00 02/15/17 08:36 Senna/Docusate Sodium (Senokot-S) 1 tab BID PRN PO CONSTIPATION 02/13/17 14:00 02/14/17 08:41 Witch Franca/ Glycerin (Tucks Pads) 1 pad BEDSIDE MEDICATION PRN WI HEMORRHOID/EPISIOTMY PAIN 02/13/17 14:00 02/13/17 15:39 Benzocaine (Dermoplast [place]) 1 spray BEDSIDE MEDICATION PRN TOP HEMORRHOID/EPISIOTMY PAIN 02/13/17 14:00 02/13/17 15:39 Dibucaine (Nupercainal) 1 applic BEDSIDE MEDICATION PRN WI HEMORRHOID/EPISIOTMY PAIN 02/13/17 14:00 Lanolin (Ich-[id number]-[id number]) 1 applic BEDSIDE MEDICATION PRN TOP BEDSIDE FOR AGUILAR TO NIPPLES 02/13/17 14:00 Diphtheria/ Tetanus/Acell Pertussis 0.5 ml 0.5 ml ONCE ONCE IM* 02/15/17 09:00 02/15/17 09:01 DC Oxytocin/Lactated Ringer's 500 ml @ 0 mls/hr ONCE PRN IV For Hemorrhage Management 02/13/17 14:00 Methylergonovine Maleate (Methergine) 0.2 mg ONCE PRN IM VAGINAL BLEEDING 02/13/17 14:00 Carboprost Tromethamine (Hemabate) 250 mcg ONCE PRN IM VAGINAL BLEEDING 02/13/17 14:00 Misoprostol 1000 mcg 1,000 mcg ONCE PRN [place] VAGINAL BLEEDING 02/13/17 14:00 Oxytocin/Lactated Ringer's 500 ml @ 125 mls/hr Q4H IV 02/13/17 13:58 02/14/17 05:18 DC 02/13/17 15:12 Ibuprofen (Motrin) 600 mg Q6H PRN PO PAIN 02/13/17 14:00 02/14/17 08:42 Acetaminophen (Tylenol Tab) 500 mg Q6H PRN PO PAIN AND OR ELEVATED TEMP 02/13/17 14:00 Episiotomy: The small perineal laceration is healing well Calf Tenderness: No Patient Condition: Good KAREL AMARO MD Feb 15, 2017 13:09
[2017-02-15 15:39] VITALS: BP 110/80; PULSE 70; RESP 18
== END 2017-02-15 19:00 | disposition home or self-care (01) | DRG 775 ==
LOC: L-D 10:50 → PP1 02-13 14:25
PROVIDERS: ADMIT Obstetrics & Gynecology Obstetrics; ATTEND Obstetrics & Gynecology Obstetrics
PROC: 10E0XZZ Delivery of Products of Conception, External Approach (ICD-10-PCS; principal; 2017-02-13)
PROC: 0HQ9XZZ Repair Perineum Skin, External Approach (ICD-10-PCS; 2017-02-13)
PROC: 3E033VJ Introduction of Other Hormone into Peripheral Vein, Percutaneous Approach (ICD-10-PCS; 2017-02-13)
DX: O48.0 Post-term pregnancy (principal); O70.1 Second degree perineal laceration during delivery; Z3A.40 40 weeks gestation of pregnancy; Z37.0 Single live birth
CPT/HCPCS: 62319; 76815; 76818; 80053; 81001; 84560; 85025; 85610; 85730; 86592; 86900; 86901; 87340; 90715; J2590; J3010; J7120